=== PATIENT | female | born 1980 | race Caucasian/White ===

== ENCOUNTER → 2020-02-16 08:10 | Outpatient (CLI) | payer OTHER, SELFPAY ==
[2019-10-26 16:31] VITALS: BMI 24.3
--- NOTE | 2020-02-16 08:12 | ECHOD_ITS ---
Version 2 Reason For Study: Arrhythmia Procedure This was a 2D Doppler, Color Flow transthoracic echocardiogram. Exam performed in department. Left Ventricle Normal LV size. Left ventricular systolic function is lower limits of normal. The estimated ejection fraction is 50 %. Normal diastology for age. No regional wall motion abnormalities noted. Right Ventricle Normal RV size. Normal systolic function. Mitral Valve Normal mitral valve. Trivial mitral valve insufficiency. Tricuspid Valve Normal tricuspid valve. Mild tricuspid valve insufficiency. Aortic Valve Normal aortic valve. Trisinus/trileaflet aortic valve. Pulmonic Valve Normal pulmonic valve. Great Vessels Normal aortic root. The pulmonary artery is normal size. Normal inferior vena cava. Pericardium/Pleural No pericardial effusion. MMode/2D Measurements & Calculations LVIDd: 4.8 cm IVSd: 0.85 cm Ao root diam: 2.2 cm LVIDs: 3.2 cm LVPWd: 0.81 cm RVDd: 3.3 cm FS: 32.0 % LAV(MOD-bp): 32.8 ml LVAd ap4: 27.8 cm2 SV(MOD-sp4): 49.4 ml LAV(MOD-bp) Indexed: 20.2 ml/m2 EDV(MOD-sp4): 86.5 ml LAV(MOD-sp2): 45.5 ml EDV(sp4-el): 89.3 ml LAV(MOD-sp4): 23.6 ml LVAs ap4: 16.6 cm2 ESV(MOD-sp4): 37.1 ml ESV(sp4-el): 37.2 ml EF(MOD-sp4): 57.1 % EF(sp4-el): 58.3 % SV(sp4-el): 52.1 ml LA dimension(2D): 3.9 cm LA A4 area: 11.2 cm2 RA A4 area: 10.2 cm2 Doppler Measurements & Calculations MV E max jose luis: 66.1 cm/sec Lat Peak E' Jose Luis: 12.0 cm/sec Med Peak E' Jose Luis: 9.3 cm/sec MV A max jose luis: 32.5 cm/sec E/E' lat: 5.5 E/E' med: 7.1 MV E/A: 2.0 Ao V2 max: 115.9 cm/sec LV V1 max: 89.8 cm/sec PA V2 max: 123.3 cm/sec Ao max P.4 mmHg LV V1 max P.2 mmHg Ao V2 mean: 80.4 cm/sec Ao mean P.8 mmHg Ao V2 VTI: 23.7 cm TR max jose luis: 180.1 cm/sec TR max P.0 mmHg Interpretation Summary Normal LV size. Left ventricular systolic function is lower limits of normal. The estimated ejection fraction is 50 %. Normal diastology for age. Mild tricuspid valve insufficiency. Ordering Physician: Jerome Lozoya Referring Physician: Alberta Phipps Performed By: Hue Hernandez, KIM, RVT
== END ==
PROVIDERS: PCP Physician Assistant; Referring Provider Internal Medicine Cardiovascular Disease; Visit Provider Internal Medicine Cardiovascular Disease
DX: R00.1 Bradycardia, unspecified (principal)
CPT/HCPCS: 93306